=== PATIENT | female | born 1980 | race Hispanic/Latino ===

== ENCOUNTER 2017-12-16 21:12 | Emergency (ER) | payer BC ==
[2017-12-16 21:17] VITALS: BP 138/70; PULSE 104; RESP 16; TEMP 98.2; O2SAT 100
[2017-12-16] MEDS ORDERED: Tdap Vaccine 0.5 ml Vial (10-64 yrs) IM ONE ×2 (21:32→22:18)
--- NOTE | 2017-12-16 21:34 | ED PDOC ---
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 Patient does not know when her last tetanus shot was. PMD: Carlyn Wall Past Medical History Reviewed: Historical Data, Nursing Documentation, Vital Signs Vital Signs: Last Vital Signs Temp 98.2 F 12/16/17 21:14 Pulse 104 H 12/16/17 21:14 Resp 16 12/16/17 21:14 BP 138/70 12/16/17 21:14 Pulse Ox 100 12/16/17 21:14 - Medical History PMH: Arthritis, Fibromyalgia, Migraine Other PMH: TMJ - Family History Family History: States: Unknown Family Hx - Allergies Allergies/Adverse Reactions: Allergies Allergy/AdvReac Type Severity Reaction Status Date / Time No Known Allergies Allergy Verified 12/16/17 21:14 Review of Systems ROS Statement: Except As Marked, All Systems Reviewed And Found Negative Musculoskeletal: Positive for: Hand Pain (Left thumb) Physical Exam - Reviewed Nursing Documentation Reviewed: Yes Vital Signs Reviewed: Yes - Physical Exam Appears: Positive for: Well, Non-toxic, No Acute Distress Skin: Positive for: Normal Color, Warm, Dry Extremity: Positive for: Normal ROM, Deformity (3mm laceration noted on distal aspect of left thumb) Neurologic/Psych: Positive for: Alert, Oriented - ECG O2 Sat by Pulse Oximetry: 100 (RA) Pulse Ox Interpretation: Normal Medical Decision Making Medical Decision Making: Time: 21:32 Initial Impression: Left Thumb Injury Initial Plan: --Tetanus Shot Scribe Attestation: Documented by Bigg Mena, acting as a scribe for Nic Cleaning PA-C Provider Scribe Attestation: All medical record entries made by the Scribe were at my direction and personally dictated by me. I have reviewed the chart and agree that the record accurately reflects my personal performance of the history, physical exam, medical decision making, and the department course for this patient. I have also personally directed, reviewed, and agree with the discharge instructions and disposition. Disposition - Clinical Impression Clinical Impression: Thumb laceration - Patient ED Disposition Is Patient to be Admitted: No - Disposition Disposition: Routine/Home Disposition Time: 22:27 Condition: FAIR Additional Instructions: F/U IN 2 DAYS FOR WOUND CHECK Instructions: Wound Care (DC) Forms: [employer] (Persian), [employer] ED School/Work Excuse Procedure: Wound Repair - Time Out Time Out: Site verified - Consent Obtained Consent obtained: Verbal - Performed by Performed by: Mid-level Provider - Indications Indication(s):: Laceration - Location Finger:: Left, Thumb Shape:: Linear Dimensions Length cm: 3mm Depth:: Epidermis - Wound repair method [place]:: Steri-strips (one ) - Muscle repiar layer closed with Muscle repair layer closed with:: Tetanus ordered - Patient tolerated procedure Patient Tolerated Procedure:: Well
== END 2017-12-16 22:27 | disposition home or self-care (01) ==
LOC: H.ER 21:12
DX: S61.012A Laceration without foreign body of left thumb without damage to nail, initial encounter (principal); W45.8XXA Other foreign body or object entering through skin, initial encounter; W27.2XXA Contact with scissors, initial encounter; Z23 Encounter for immunization; M79.7 Fibromyalgia